=== PATIENT | female | born 1985 | race Caucasian/White ===

== ENCOUNTER 2020-12-27 17:43 | Emergency (ER) | payer OTHER ==
[~2020-12-27] VITALS: Ht 170.2 cm; Wt 108.9 kg
[2020-12-27] MEDS ORDERED: DESV50 PO (18:55)
== END 2020-12-27 19:02 | disposition home or self-care (01) ==
LOC: ER 17:43
DX: S40.812A Abrasion of left upper arm, initial encounter (principal); F41.9 Anxiety disorder, unspecified; Z72.89 Other problems related to lifestyle; X78.1XXA Intentional self-harm by knife, initial encounter
CPT/HCPCS: 99284